=== PATIENT | female | born 1955 | race Caucasian/White ===

== ENCOUNTER → 2018-08-06 | Outpatient (CLI) | payer OTHER ==
--- NOTE | 2018-08-07 16:16 | PCVCIMAG ---
APPROVED REPORT Study performed: 08/06/2018 08:17:50 EXAM: Comprehensive 2D, Doppler, and color-flow Echocardiogram Patient Location: Echo lab Room #: 2Status: routine BSA: 1.75 HR: 64 bpmBP: 126/76 mmHg Rhythm: NSR Other Information Study Quality: Good Risk Factors: Cardiac Risk Factors: HTN, Hyperlipidemia Indications Chest Pain 2D Dimensions IVSd: 9.85 (7-11mm)LVOT Diam: 19.93 (18-24mm) LVDd: 48.61 mm PWd: 9.77 (7-11mm)Ascending Ao: 30.46 (22-36mm) LVDs: 39.05 (25-40mm) Left Atrium: 31.40 (27-40mm) Aortic Root: 22.13 mm LV Single Plane 4CH: 59.57 % LV Single Plane 2CH: 65.14 % Biplane EF: 62.7 % Volumes Left Atrial Volume (Systole) Single Plane 4CH: 42.00 mLSingle Plane 2CH: 31.68 mL Biplane LA Volume: 38.00 mLLA ESV Index: 22.00 mL/m2 Aortic Valve AoV Peak Jun.: 1.43 m/s AO Peak Gr.: 8.19 mmHgLVOT Max P.21 mmHg LVOT Max V: 0.95 m/s ELKIN Vmax: 2.07 cm2 Mitral Valve E/A Ratio: 1.2 MV Decel. Time: 147.56 ms MV E Max Jun.: 0.65 m/s MV A Jun.: 0.54 m/s IVRT: 114.19 ms TDI E/Lateral E': 6.50E/Medial E': 5.91 Medial E' Jun.: 0.11 m/s Lateral E' Jun.: 0.10 m/s Pulmonary Valve PV Peak Jun.: 0.90 m/sPV Peak Gr.: 3.21 mmHg Pulmonary Vein P Vein S: 0.44 m/sP Vein A: 0.24 m/s P Vein D: 0.40 m/sP Vein A Dur.: 96.9 msec P Vein S/D Ratio: 1.10 Tricuspid Valve TR Peak Jun.: 2.42 m/s TR Peak Gr.: 23.48 mmHg TV Vmax: 0.59 m/sPA Pressure: 30.00 mmHg Left Ventricle The left ventricle is normal size. There is normal LV segmental wall motion. There is normal left ventricular wall thickness. Left ventricular systolic function is normal. The left ventricular ejection fraction is within the normal range. LVEF is 60-65%. The left ventricular diastolic function is normal. Right Ventricle The right ventricle is normal size. The right ventricular systolic function is normal. Atria The left atrium size is normal. The right atrium size is normal. Aortic Valve Aortic valve is trileaflet. Minimal aortic valve sclerosis. No aortic regurgitation is present. There is no aortic valvular stenosis. Mitral Valve The mitral valve is normal in structure. There is no mitral valve regurgitation noted. No evidence of mitral valve stenosis. Tricuspid Valve The tricuspid valve is normal in structure. Trace to mild tricuspid regurgitation with a PA pressure of 30 mmHg. Borderline pulmonary hypertension. Pulmonic Valve The pulmonary valve is normal in structure. There is no pulmonic valvular regurgitation. Great Vessels The aortic root is normal in size. The ascending aorta is normal in size. Aortic arch is normal in caliber. IVC is normal in size and collapses >50% with inspiration. Pericardium There is no pericardial effusion. There is no pleural effusion. <Conclusion> The left ventricle is normal size. LVEF is 60-65%. Aortic valve is trileaflet. Minimal aortic valve sclerosis. The mitral valve is normal in structure. There is no mitral valve regurgitation noted. The tricuspid valve is normal in structure. Trace to mild tricuspid regurgitation with a PA pressure of 30 mmHg. Borderline pulmonary hypertension. The pulmonary valve is normal in structure. There is no pericardial effusion. There is no pleural effusion.
--- NOTE | 2018-08-07 16:23 | PCVCIMAG ---
APPROVED REPORT Imaging Protocol: Rest Tc-99m/Stress Tc-99m 1 day Study performed: 08/06/2018 08:57:46 Indication: Chest pain, Abnormal EKG Patient Location: Out-Patient Stress Nurse: Marissa Beckman RN [place] Tech:Vesta Chaidezbaldomero [facility] Ht: 5 ft 6 in Wt: 146 lbs BSA: 1.75 m2 HR: 65 bpm BP: 161/74 mmHg BMI: 23.56 Rhythm: Normal Sinus Rhythm, Septal defect Medical History Medical History: Hyperlipidemia, HTN Medications: Losartan Allergies: None relevant to this exam. Cardiac Risk Factors: Age Pretest Chest Pain Characteristics: No chest pain Exercise History: Physically active Resting Data Rest SPECT myocardial perfusion imaging was performed in supine position 45 minutes following the intravenous injection of 10.5 mCi of Tc-99m Sestamibi. Time of rest injection: 0900 Date: 08/06/2018 Administration Route: IV Administration Site: Left AC Exercise Stress At peak stress, the patient was injected intravenously with 34.8mCi of Tc-99m Sestamibi. Time of stress injection: 1015 Date: 08/06/2018 Administration Route: IV Administration Site: Left AC Patient continued to exercise for 1 minute(s). Gated Stress SPECT was performed 30 minutes after stress injection. The images were gated to evaluate regional wall motion and calculate left ventricular ejection fraction. Stress Test Details Stress Test: Exercise stress testing was performed using a Isma protocol. HRMax Heart Rate (APMHR): 158 bpm Resting HR: 65 bpmTarget HR (85% APMHR): 134 bpm Max HR Achieved: 151 bpm % of APMHR: 95 Recovery HR: 77 bpm HR response to stress: Normal HR response to stress BP Resting BP: 161/74 mmHg Max BP: 160/80 mmHg Recovery BP: 130/60 mmHg BP response to stress: Normal blood pressure response to stress. ECG Resting ECG: Normal Sinus Rhythm, Septal defect Stress ECG: Sinus Tachycardia ST Change: Horizontal ST depression Maximum ST Deviation: 1 mm Arrhythmia: PVC's Recovery ECG: Sinus Rhythm Clinical Reason for Termination: Maximal effort Stress Symptoms: Dyspnea Exercise duration: 11 min 15 sec Exercise capacity: 13.40 METs Overall Exercise Capacity for Age: Good Scale: Active Angina Score: None Symptoms resolved during recovery. Stress ECG Conclusion 1. subjectively negative for ischemia 2. electrocardiographically negative for ischemia 3. adequate functional capacity Hinojosa Treadmill Score is 6.0 which is Low risk. Study Data Post stress, the left ventricular ejection was 74%.. SSS: 0 SRS: 7 SDS: 0 TID = 0.80. Perfusion There is a medium area of moderately reduced uptake in the mid and apical segment of the anterior wall which is seen on the stress images as well as the resting images. This area thickens and moves normally and is most consistent with attenuation artifact. Wall Motion Normal left ventricular wall motion. Nuclear Conclusion ECG Findings: negative for ischemia Clinical Findings: negative for ischemia Nuclear Findings: negative for ischemia Exercise Capacity: normal Left Ventricular Function: normal 1. low risk study 2.post stress lvef 74% without wall motion abnormalities <Conclusion> 1. subjectively negative for ischemia 2. electrocardiographically negative for ischemia 3. adequate functional capacity
== END | disposition home or self-care (01) ==
LOC: PCVCIMAG 07:59
PROVIDERS: ATTEND Internal Medicine
DX: I08.2 Rheumatic disorders of both aortic and tricuspid valves (principal); R94.31 Abnormal electrocardiogram [ECG] [EKG]; I10 Essential (primary) hypertension; K21.9 Gastro-esophageal reflux disease without esophagitis
CPT/HCPCS: 78452; 93017; 93306; A9500